=== PATIENT | female | born 1990 | race Caucasian/White ===

== ENCOUNTER 2016-10-04 12:30 | Emergency (ER) | payer SELFPAY ==
[~2016-10-04] VITALS: Ht 144.8 cm; Wt 83.9 kg
[2016-10-04 12:31] VITALS: BP 120/83
[2016-10-04] MEDS ORDERED: PRED20TA PO (12:59)
[2016-10-04] MEDS ORDERED: ZITHTAB PO (12:59)
[2016-10-04] MEDS ORDERED: predniSONE 20 MG TAB PO ONE (13:00)
[2016-10-04] MEDS ORDERED: ALBUTEROL 90 MCG/ACT 8GM HFA INHALER INH ONE (13:00)
== END 2016-10-04 13:25 | disposition home or self-care (01) ==
LOC: M ED 13:24
DX: J20.9 Acute bronchitis, unspecified (principal); J45.909 Unspecified asthma, uncomplicated; E66.9 Obesity, unspecified

== ENCOUNTER 2016-12-17 16:32 | Emergency (ER) | payer SELFPAY ==
[~2016-12-17] VITALS: Ht 144.8 cm; Wt 84.4 kg
[~2016-12-17 16:32] MED LIST: PRED20TA PO; ZITHTAB PO
[2016-12-17 16:33] VITALS: BP 104/65
[2016-12-17] MEDS ORDERED: NORCO, ANEXSIA 5/325MG TABLET (HYDROcodone/ACETAMINOPHEN) PO ONE (17:00)
[2016-12-17] MEDS ORDERED: NORCOTAB PO (17:19)
--- NOTE | 2016-12-17 17:27 | REP ---
Clinical: Trauma . Technique: AP, lateral, bilateral oblique views right ankle. Findings: No acute fracture or dislocation. Lateral swelling consistent with inversion injury. Skeletal structures and joint spaces are intact and normal. Ankle mortise appears stable. No subcutaneous emphysema or radiodense foreign body. Impression: Lateral swelling. No acute fracture or dislocation. Signed by Jonathan Mata MD 12/17/2016 05:18 P
== END 2016-12-17 17:28 | disposition home or self-care (01) ==
LOC: M ED 17:01
DX: S93.401A Sprain of unspecified ligament of right ankle, initial encounter (principal); W07.XXXA Fall from chair, initial encounter; W54.1XXA Struck by dog, initial encounter; Y92.009 Unspecified place in unspecified non-institutional (private) residence as the place of occurrence of the external cause; Y93.89 Activity, other specified; Y99.8 Other external cause status; F17.210 Nicotine dependence, cigarettes, uncomplicated

== ENCOUNTER 2017-08-28 09:13 | Emergency (ER) | payer OTHER, MEDICARE, SELFPAY ==
[2017-08-28] MEDS: NS 1,000 ML IV (10:15)
[2017-08-28] MEDS: ONDANSETRON 4MG/2ML VIAL (J2405) IV (10:15)
[2017-08-28 10:43] LABS: BASO % 0.6 % (0.0-1.0); EOS # 0.1 10^3/uL (0.0-0.50); EOS % 2.2 % (0.0-3.0); HEMATOCRIT 39.4 % (36.0-47.0); HEMOGLOBIN 13.4 g/dl (12.0-16.0); LYMPH # 2.4 10^3/uL (1.5-6.5); LYMPH % 46.1 % (24.0-44.0); MEAN CORPUSCULAR VOLUME 88.3 fl (80.0-96.0); MONO # 0.3 10^3/uL (0.0-0.8); MONO % 6.1 % (0.0-5.0); NEUTROPHILS # 2.3 10^3/uL (1.8-7.7); PLATELET COUNT, AUTOMATED 213 10^3/uL (150-450); RED BLOOD COUNT 4.46 10^6/uL (4.00-5.40); RED CELL DISTRIBUTION WIDTH 12.5 % (11.5-14.5); WHITE BLOOD COUNT 5.1 10^3/uL (4.0-10.0)
[2017-08-28 10:57] LABS: ANION GAP 8 MEQ/L (8-16); BLOOD UREA NITROGEN 13 MG/DL (7-18); CALCIUM LEVEL 9.5 MG/DL (8.5-10.1); CARBON DIOXIDE LEVEL 28 MEQ/L (21-32); CHLORIDE LEVEL 105 MEQ/L (98-107); CREATININE FOR GFR 0.88 MG/DL (0.55-1.30); GLOMERULAR FILTRATION RATE > 60.0 (>60); GLUCOSE, FASTING 91 MG/DL (70-100); POTASSIUM SERUM 3.7 MEQ/L (3.5-5.1); SODIUM LEVEL 141 MEQ/L (136-145)
[2017-08-28 11:11] LABS: INFLUENZA A AMPLIFICATION NEGATIVE (NEGATIVE); INFLUENZA B AMPLIFICATION NEGATIVE (NEGATIVE); RSV AMPLIFICATION NEGATIVE (NEGATIVE)
== END 2017-08-28 12:12 | disposition home or self-care (01) ==
LOC: M ED 09:13
DX: R11.2 Nausea with vomiting, unspecified (principal); R19.7 Diarrhea, unspecified; F17.210 Nicotine dependence, cigarettes, uncomplicated
CPT/HCPCS: J2405

== ENCOUNTER 2017-09-18 10:05 | Emergency (ER) | payer OTHER | END 2017-09-18 12:08 | disposition home or self-care (01) | LOC: M ED 10:05 | DX: H10.33 Unspecified acute conjunctivitis, bilateral (principal); F17.200 Nicotine dependence, unspecified, uncomplicated | CPT/HCPCS: 99282 ==

== ENCOUNTER 2017-11-10 15:58 | Emergency (ER) | payer OTHER | END 2017-11-10 17:36 | disposition home or self-care (01) | LOC: M ED 15:58 | DX: J02.9 Acute pharyngitis, unspecified (principal); R56.9 Unspecified convulsions; F17.200 Nicotine dependence, unspecified, uncomplicated; G93.0 Cerebral cysts | CPT/HCPCS: 87880 ==

== ENCOUNTER → 2018-10-29 | Outpatient (REF) | payer OTHER ==
[~2018-10-29] MED LIST changes: +HYDR-3715 PO; +TOBR0.3S37 OP; +ZOFR4TAB14 PO
== END ==
LOC: M SFHCPLAZ 14:00
PROVIDERS: ATTEND Nurse Practitioner Family
DX: Z00.00 Encounter for general adult medical examination without abnormal findings (principal); Z13.220 Encounter for screening for lipoid disorders; E66.01 Morbid (severe) obesity due to excess calories; F32.9 Major depressive disorder, single episode, unspecified; Z68.41 Body mass index [BMI] 40.0-44.9, adult

== ENCOUNTER → 2021-07-01 | Outpatient (CLI) | payer SELFPAY | LOC: M LABSMTC 12:08 | PROVIDERS: ATTEND Pediatrics | DX: Z20.822 Contact with and (suspected) exposure to COVID-19 (principal) ==

== ENCOUNTER → 2021-07-06 | Outpatient (REF) | LOC: M LABSMTC 09:53 | PROVIDERS: ATTEND Pediatrics | DX: Z11.52 Encounter for screening for COVID-19 (principal) ==

== ENCOUNTER 2021-09-02 19:41 | Emergency (ER) | payer SELFPAY ==
[~2021-09-02] VITALS: Ht 144.8 cm; Wt 85.0 kg
[2021-09-02 22:40] VITALS: BP 120/73
== END 2021-09-02 23:07 | disposition left against medical advice (07) ==
LOC: M ED 19:41
DX: Z53.21 Procedure and treatment not carried out due to patient leaving prior to being seen by health care provider (principal)